=== PATIENT | female | born 1960 | race Caucasian/White ===

== ENCOUNTER → 2016-06-21 | Outpatient (CLI) | payer OTHER ==
[~2016-06-21] MED LIST: ANTIVERT 25MG25 MG PO; ATIVAN 0.50.5 MG/TAB PO; BIOTENE; BIOTIN; BIOTIN1 MG; CLIMARA 0.1 PATCH.W1 TD; ESTRACE 1MG1 MG/TAB PO; FLONASE NASAL S16 GM INH; MELATONIN 0.3MG; MOTRIN 600600 MG/TAB PO; MULTIPLE VITAMI1 CAP PO; NORCO 325 MG-7.1 TAB PO; PRILOSEC 20MG20 MG PO; VALIUM 2MG T2 MG/TAB PO; VENTOLIN0.09 MG IH; VITAMIN D 1001000 IU PO; VITAMINE200 PO; ZOFRAN 4MG T4 MG/TAB PO; ZOFRAN ODT4 MG PO; [UNRECOGNIZED DRUG - OTHER]; [UNRECOGNIZED DRUG - OTHER]
== END ==
LOC: COL.PUL 10:45
DX: J45.998 Other asthma (principal)

== ENCOUNTER 2016-08-21 07:38 | Emergency (ER) | payer OTHER ==
[~2016-08-21] VITALS: Ht 160 cm; Wt 72.7 kg
[~2016-08-21 07:38] MED LIST changes: -ATIVAN 0.50.5 MG/TAB PO; -ESTRACE 1MG1 MG/TAB PO; -FLONASE NASAL S16 GM INH; -PRILOSEC 20MG20 MG PO; -VITAMIN D 1001000 IU PO; -VITAMINE200 PO; -ZOFRAN 4MG T4 MG/TAB PO
[2016-08-21 07:41] VITALS: BP 155/86; PULSE 64; TEMP 97.5
[2016-08-21] MEDS ORDERED: PRILOSEC 20MG20 MG PO (07:59)
[2016-08-21] MEDS ORDERED: ESTRACE 1MG1 MG/TAB PO (07:59)
[2016-08-21] MEDS ORDERED: FLONASE NASAL S16 GM INH (08:00)
[2016-08-21] MEDS ORDERED: VITAMIN D 1001000 IU PO (08:01)
[2016-08-21] MEDS ORDERED: VITAMINE200 PO (08:01)
[2016-08-21 08:19] LABS: BASO % 0.3 % (0.0-2.0); EOS # 0.1 (0.0-0.7); EOS % 0.5 % (0-4.0); GRAN # 7.9 (1.4-6.5); GRAN % 81.8 % (42.2-75.2); HEMATOCRIT 40.8 % (37.0-47.0); HEMOGLOBIN 13.8 g/dl (12.5-16.0); LYMPH # 1.1 (1.2-3.4); LYMPH % 11.4 % (20.0-51.0); MEAN CELL VOLUME 91 fl (80.0-100.0); MEAN CORPUSCULAR HEMOGLOBIN 31 pg (27.0-31.0); MEAN CORPUSCULAR HGB CONC 34 g/dl (33.0-37.0); MEAN PLATELET VOLUME 10.1 fl (7.4-10.4); MONO # 0.5 (0.1-0.6); MONO % 5.6 % (1.7-9.3); PLATELET COUNT 225 K/mm3 (130-400); RED BLOOD COUNT 4.49 M/mm3 (4.10-5.30); REDCELL DISTRIBUTION WIDTH-CV 12.8 % (11.5-14.5); WHITE BLOOD COUNT 9.6 K/mm3 (4.8-10.8)
[2016-08-21 08:32] LABS: ADJUSTED CALCIUM 9.1 mg/dL (8.4-10.2); ALANINE AMINOTRANSFERASE 27 U/L (9-52); ALBUMIN 4.2 gm/dL (3.5-5.0); ALKALINE PHOSPHATASE 69 U/L (50-136); ANION GAP 10 mmol/L (7-16); BILIRUBIN,TOTAL 0.8 mg/dL (0.0-1.0); BLOOD UREA NITROGEN 17 mg/dL (7-17); C-REACTIVE PROTEIN 0.8 mg/dL (0.0-0.9); CALCIUM 9.3 mg/dL (8.4-10.2); CARBON DIOXIDE 24 mmol/L (22-30); CHLORIDE 104 mmol/L (98-107); CREATININE, serum 0.59 mg/dL (0.52-1.25); GLUCOSE 100 mg/dL (74-106); SODIUM 139 mmol/L (137-145); TOTAL PROTEIN 7.5 gm/dL (6.4-8.2)
[2016-08-21 08:35] LABS: POTASSIUM 4.8 mmol/L (3.4-5.0)
[2016-08-21 08:41] LABS: TROPONIN-I < 0.012 ng/mL (0.000-0.034)
[2016-08-21] MEDS ORDERED: ATIVAN 0.50.5 MG/TAB PO (08:52)
[2016-08-21] MEDS ORDERED: ZOFRAN 4MG T4 MG/TAB PO (08:52)
== END 2016-08-21 09:19 | disposition home or self-care (01) ==
LOC: COL.ER 07:38
PROVIDERS: Emergency Medicine
DX: R42 Dizziness and giddiness (principal); J45.909 Unspecified asthma, uncomplicated
CPT/HCPCS: J2060; J2405; J7030

== ENCOUNTER → 2016-11-23 | Outpatient (CLI) | payer OTHER ==
[~2016-11-23] MED LIST changes: +ATIVAN 0.50.5 MG/TAB PO; +ESTRACE 1MG1 MG/TAB PO; +FLONASE NASAL S16 GM INH; +PRILOSEC 20MG20 MG PO; +VITAMIN D 1001000 IU PO; +VITAMINE200 PO; +ZOFRAN 4MG T4 MG/TAB PO
== END ==
LOC: MC.RAD 06:58
DX: Z12.31 Encounter for screening mammogram for malignant neoplasm of breast (principal)

== ENCOUNTER → 2020-04-27 | Outpatient (CLI) | payer OTHER | LOC: MC.RAD 09:51 | DX: R59.0 Localized enlarged lymph nodes (principal) ==